=== PATIENT | male | born 1955 | race Caucasian/White ===

== ENCOUNTER → 2023-03-29 09:30 | Outpatient (REF) | payer MEDICARE, SELFPAY | LOC: RAD 09:30 | PROVIDERS: ATTENDING PHYSICIAN Internal Medicine | DX: Z13.6 Encounter for screening for cardiovascular disorders (principal) | CPT/HCPCS: 76770 ==

== ENCOUNTER → 2023-04-12 10:08 | Outpatient (REF) | payer MEDICARE, SELFPAY | LOC: HWRAD 10:08 | PROVIDERS: ATTENDING PHYSICIAN Family Medicine | DX: Z13.820 Encounter for screening for osteoporosis (principal); M81.0 Age-related osteoporosis without current pathological fracture | CPT/HCPCS: 77080 ==

== ENCOUNTER → 2023-07-26 13:11 | Outpatient (REF) | payer MEDICARE, SELFPAY ==
[2023-07-26 13:43] LABS: Hemoglobin 13.7 g/dL (13.0-18.0); Mean Corp Hgb Conc. 33.4 g/dL (33.0-37.0); Mean Corpuscular Hgb 32.1 pg (27.0-31.0); Mean Platelet Volume 9.8 fL (7.4-10.4); Platelet Count 187 10^3/uL (130-400); Red Blood Cell Count 4.27 10^6/uL (4.70-6.10); Red Cell Dist. Width 12.5 % (11.5-14.5); White Blood Cell Count 7.5 10^3/uL (4.8-10.8)
== END ==
LOC: SDSPAT 13:11
PROVIDERS: ATTENDING PHYSICIAN Orthopaedic Surgery Hand Surgery; FAMILY PHYSICIAN Family Medicine
DX: Z01.818 Encounter for other preprocedural examination (principal)
CPT/HCPCS: 36415; 85027; 93005

== ENCOUNTER 2023-08-09 06:22 | Day surgery (SDC) | payer MEDICARE, SELFPAY ==
[2023-07-26 13:25] VITALS: BMI 23.6
[2023-08-09] VITALS (7 sets, daily range): BP systolic 10–149; BP diastolic 61–80; BMI 23.6
[2023-08-09] MEDS: NORMOSOL-R 1000 IV (09:02)
[2023-08-09] MEDS: CELEBREX 200 MG PO (09:02)
[2023-08-09] MEDS: TYLENOL 1000 MG PO (09:02)
== END 2023-08-09 11:45 | disposition home or self-care (01) ==
LOC: SDS 06:22
PROVIDERS: ATTENDING PHYSICIAN Orthopaedic Surgery Hand Surgery
DX: M65.342 Trigger finger, left ring finger (principal); M19.042 Primary osteoarthritis, left hand
CPT/HCPCS: 26860; 26055; C1713

== ENCOUNTER 2023-09-07 19:48 | Emergency (ER) | payer MEDICARE, SELFPAY ==
[2023-09-07 19:50] VITALS: BP 173/105; BMI 22.3
[2023-09-07 20:52] VITALS: BP 148/96
[2023-09-07 21:04] VITALS: BP 148/96
--- NOTE | 2023-09-07 21:13 | ED.GENMED ---
History of Present Illness
General
Chief Complaint: Skin Problem
Source: patient
Exam Limitations: none
Time Seen by Provider: 09/07/23 21:04
History of Present Illness
History of Present Illness:
This is a 68 year old male that comes in with c/o wanting his 5th finger checked for infection. States that he recently had surgery by Dr. Gregorio as there was arthritis and ht took a tendon out and placed a screw. States that he has been feeling
that it is infected. States that he has had a headache with some dizziness. Denies any fever, chills, chest pain, SOB, abd pain, nausea, vomiting, diarrhea, urinary burning.
Past History
Past History
ED Past Medical History: GERD, HTN, Hypercholesterolemia and Other (ADHD on Adderall, IBS, Renal calculus,Left knee bakers cyst)
ED Past Surgical History: Orthopedic (Left knee surgery, Right Rotator cuff surgery, Cyst removed from right wrist) and Other (Hernia surgery, )
Social History
Tobacco: Non-smoker
Alcohol: None
Personal:
Living: with family
Employment: Employed
Family History
Family History: Negative Diabetes, Hypertension, Early CAD, CAD, Asthma or Cancer
Review of Systems
Review of Systems
All Other Systems: ROS reviewed and negative except as documented in HPI and ROS
Constitutional: Reports no symptoms; Denies fever or chills
EENT: Reports no symptoms
Respiratory: Reports no symptoms; Denies cough or trouble breathing
Cardiac: Reports no symptoms; Denies chest pain
ABD/GI: Reports no symptoms; Denies abdominal pain, nausea, vomiting or diarrhea
: Reports no symptoms
Musculoskeletal: Reports no symptoms
Skin: Reports other (Wound check left 5th finger)
Neurological: Reports dizzy and headache
Psychiatric: Reports no symptoms
Phy Exam
General Physical Exam
General Presentation: well appearing and no apparent distress
General age: appears stated age
General Skin: warm and dry
General Habitus: elderly
General Mental: alert
General Hydration: appears well hydrated
ENT Exam
ENT Exam: TM's normal, pharynx normal and neck supple
Eye Exam
Eye Exam: EOMI
Cardiovascular Exam
Cardiovascular Exam: regular rate/rhythm
Pulmonary Exam
Pulmonary Exam: lungs clear, no respiratory distress, no rales, chest non tender, no crackles, no rhonchi, no wheezing and no cough
Musculoskeletal Exam
Musculoskeletal Exam: full ROM
Skin Exam
Skin Exam: normal color, warm/dry, no rash, no petechia and other (Left fifth finger with scabbed area. Negative for increased warmth, redness or drainage. )
Psychiatric Exam
Psychiatric Exam: normal mood/affect
Course
Orders/Labs/Results
Orders:
Orders
09/07/23 21:19
Complete Blood Count/With Diff Urgent
Lactate Level [Lactic Acid] Urgent
Abnormal Lab Results
09/07/23
21:19
RBC 4.07 L 10^6/uL
(4.70-6.10)
Hct 36.9 L %
(39.0-52.0)
MCH 32.4 H pg
(27.0-31.0)
Neutrophils % 41.4 L %
(42.2-75.2)
Monocytes % 10.6 H %
(1.7-9.3)
Lactic Acid 0.5 L mmol/L
(0.7-2.0)
09/07/23 21:19
CBC normal. Lactic 0.5
Vital Signs
Initial and Last Documented VS:
Initial Vital Signs
Temp Pulse Resp BP Pulse Ox
98.2 F 96 18 173/105 96
09/07/23 19:50 09/07/23 19:50 09/07/23 19:50 09/07/23 19:50 09/07/23 19:50
Last Documented Vital Signs
Temp Pulse Resp BP Pulse Ox
98.2 F 84 16 148/96 94
09/07/23 19:50 09/07/23 21:04 09/07/23 21:04 09/07/23 21:04 09/07/23 21:04
MDM/Problems Addressed
Differential Diagnosis Includes:
Wound check
MDM/Problems Addressed:
This is a 68 year old male that come in with c/o wanting a wound check or second opinion. States that he has surgery on his finger and he was concerned that there was infection.
Explained to patient that the finger looks good, There is no sign of infection such as increased warmth, ,redness or drainage. There is a scab noted. Told patient that this does not look infected but would check CBC to see his WBC and get lactic
acid.
Chronic conditions affecting care:
NA
Acute Exacerbation and/or Progression of Chronic Illness:
NA
*Pulse Oximetry
Patient hypoxic: no
*EKG
Interpreted by ED Provider?: NA
Rate: EKG- N/A
*Mill Hand Interpretation
Rate: Mill Hand- N/A
*Critical Care Note
Total Time (30-74mins, 75-104mins- exclusive of procedures): Not Applicable
ED Attending Note
-
Portions of this chart may have been created with voice recognition software.� Occasional wrong word or��sound alike� substitutions may have occurred due to the inherent limitations of voice recognition software.
Discharge Plan
Departure
Patient Disposition: Home (Routine Discharge)
Date of Disposition: 09/07/23
Time of Disposition: 21:56
Patient with high blood pressure during this ER visit?: Yes
Condition: Good
Covid-19: Not Applicable
Discharge Problem:
Visit for wound check
Instructions: Wound Care (DC), BLOOD PRESSURE
Prescriptions:
No Action
rabeprazole [AcipHex] 20 MG tablet,delayed release (DR/EC)
20 mg PO DAILY
dextroamphetamine-amphetamine [Adderall XR] 20 MG capsule,extended release 24hr
20 mg PO BID
estazolam 1 MG tablet
1 mg PO HS
dextroamphetamine-amphetamine [Adderall XR] 30 MG capsule,extended release 24hr
30 mg PO DAILY AT 0700
rosuvastatin 5 MG tablet
5 mg PO Q48H
candesartan 4 mg Tablet
4 mg PO DAILY
hyoscyamine 0.15 mg Tablet
0.125 mg PO PRN PRN (Reason: pain)
ibuprofen 600 mg Tablet
600 mg PO Q6H PRN (Reason: pain)
coQ10 (ubiquinol) 200 mg Capsule
200 mg PO DAILY
Calcium + D
400 mg PO DAILY
Activity Restrictions/Additional Instructions:
As discussed, your blood work is normal. Your lactic acid which is a marker for infection is normal. There is no sign of infection. Please follow up with the Surgeon for further evaluation. IF YOU HAVE REDNESS, INCREASED WARMTH OR DRAINAGE OR YOU
HAVE ANY OTHER CONCERNS PLEASE RETURN TO THE EMERGENCY ROOM
Interventions
Interventions:
*Risk Screen - Suicide Last Done: 09/07/23 19:50
*General Assessment Last Done: 09/07/23 20:57
*Neglect/Abuse Screening Last Done: 09/07/23 19:50
ED- Fall Risk Assessment Last Done: 09/07/23 20:59
*ED COVID-19 Vaccine History Last Done: 09/07/23 20:57
ED-Skin Assessment Last Done: 09/07/23 21:25
Discharge Date and Time
Print Language: KOREAN
[2023-09-07 21:28] LABS: % Basophils 0.5 % (0-2); % Eosinophils 2.3 % (0-6); % Immature Granulocytes 0.2 % (0-0.5); % Monocytes 10.6 % (1.7-9.3); % Neutrophils 41.4 % (42.2-75.2); Absolute Eosinophils 0.1 10^3/uL (0-0.7); Absolute Lymphocytes 2.6 10^3/uL (1.2-3.4); Absolute Monocytes 0.6 10^3/uL (0.1-0.6); Absolute Neutrophils 2.4 10^3/uL (1.4-6.5); Hematocrit 36.9 % (39.0-52.0); Hemoglobin 13.2 g/dL (13.0-18.0); Mean Corp Hgb Conc. 35.8 g/dL (33.0-37.0); Mean Corpuscular Hgb 32.4 pg (27.0-31.0); Mean Corpuscular Volume 90.7 fL (80.0-94.0); Mean Platelet Volume 9.7 fL (7.4-10.4); Nucleated Red Blood Cells % 0 % (-); Platelet Count 187 10^3/uL (130-400); Red Blood Cell Count 4.07 10^6/uL (4.70-6.10); Red Cell Dist. Width 12.7 % (11.5-14.5); White Blood Cell Count 5.8 10^3/uL (4.8-10.8)
[2023-09-07 21:41] LABS: Lactic Acid 0.5 mmol/L (0.7-2.0)
== END 2023-09-07 22:08 | disposition home or self-care (01) ==
LOC: EMR 19:48
PROVIDERS: Clinical Nurse Specialist Family Health; EMERGENCY PHYSICIAN Emergency Medicine; FAMILY PHYSICIAN Family Medicine
DX: Z48.00 Encounter for change or removal of nonsurgical wound dressing (principal); I10 Essential (primary) hypertension
CPT/HCPCS: 99283; 83605; 85025

== ENCOUNTER → 2023-10-07 10:26 | Outpatient (REF) | payer MEDICARE, SELFPAY | LOC: MRI 3T 10:26 | PROVIDERS: ATTENDING PHYSICIAN Orthopaedic Surgery Hand Surgery; FAMILY PHYSICIAN Family Medicine | DX: M54.50 Low back pain, unspecified (principal) | CPT/HCPCS: 72148 ==

== ENCOUNTER → 2023-11-15 13:44 | Outpatient (REF) | payer MEDICARE, SELFPAY | LOC: HWRAD 13:44 | PROVIDERS: ATTENDING PHYSICIAN Internal Medicine | DX: M25.571 Pain in right ankle and joints of right foot (principal) | CPT/HCPCS: 73610 ==

== ENCOUNTER → 2024-06-15 07:21 | Outpatient (REF) | payer MEDICARE, OTHER, SELFPAY | LOC: MRI 07:21 | PROVIDERS: ATTENDING PHYSICIAN Family Medicine | DX: H81.10 Benign paroxysmal vertigo, unspecified ear (principal); R51.9 Headache, unspecified; H81.4 Vertigo of central origin | CPT/HCPCS: 70544; 70553; A9575 ==